=== PATIENT | male | born 1960 | race Two or more races ===

== ENCOUNTER 2023-11-19 14:28 | Inpatient (IN) | payer MEDICARE, MEDICAID ==
[~2023-11-19] VITALS: Ht 177.8 cm; Wt 84.5 kg
[2023-11-19 15:35] LABS: Basophils # (auto) 0.1 10 ^3/uL (0-0.2); Basophils % (auto) 0.4 % (0.0-2.0); Eosinophils # (auto) 0.1 10 ^3/uL (0-0.8); Eosinophils % (auto) 0.3 % (0.0-7.0); Hematocrit 36.4 % (41.0-53.0); Hemoglobin 11.7 g/dL (13.5-17.5); Lymphocytes # (auto) 0.8 10 ^3/uL (0.4-5.4); Lymphocytes % (auto) 5.1 % (10.0-50.0); Mean Corpuscular Hgb Conc. 32.1 g/dL (32.0-36.0); Mean Corpuscular Volume 93.3 fL (80.0-100.0); Monocytes # (auto) 2.8 10 ^3/uL (0-1.3); Monocytes % (auto) 17.1 % (0.0-12.0); Neutrophils # (auto) 12.6 10 ^3/uL (1.6-8.6); Neutrophils % (auto) 77.1 % (37.0-80.0); Red Cell Distribution Width 21.1 % (11.8-14.3); White Blood Cell 16.3 10^3/uL (4.4-10.8)
[2023-11-19 16:07] LABS: Alanine Aminotransferase 52 U/L (7-40); Albumin 3.5 g/dL (3.2-4.8); Alkaline Phosphatase 117 U/L (46-116); Anion Gap 9 (5-15); Aspartate Aminotransferase 82 U/L (13-40); BUN/Creatinine Ratio 42.9 (10.0-20.0); Bilirubin, Total 2.6 mg/dL (0.2-1.0); Blood Alcohol < 3.0 mg/dL (<10); Blood Urea Nitrogen 48 mg/dL (9-23); Calcium 8.5 mg/dL (8.5-10.1); Carbon Dioxide 25 mmol/L (20-30); Chloride 101 mmol/L (98-107); Glucose 98 mg/dL (74-106); Potassium 3.5 mmol/L (3.5-5.1); Sodium 135 mmol/L (136-145); Total Protein 6.2 g/dL (5.7-8.2)
[2023-11-19] MEDS: HYDROcodone-ACET 10/325MG TAB PO ONE (16:27)
[2023-11-19 16:30] LABS: Lipase 55 U/L (12-53)
[2023-11-19 19:27] VITALS: PULSE 93; RESP 20; O2SAT 97
[2023-11-19] MEDS: ENOXAPARIN SOD 40 MG/0.4 ML SYRINGE SC ONE (21:24)
[2023-11-19 22:37] LABS: Amphetamine Screen, Urine Neg (NEGATIVE); Barbiturate Scree,Urine Neg (NEGATIVE); Benzodiazephine Screen, Urine Neg (NEGATIVE); Cannabinoid Screen, Urine Neg (NEGATIVE); Cocaine Screen, Urine Neg (NEGATIVE); Opiate Scree,Urine Neg (NEGATIVE); Phencyclidine Screen, Urine Neg (NEGATIVE)
[2023-11-19 22:39] LABS: Urine Bacteria NONE SEEN /hpf (None Seen); Urine Blood Negative /uL (Negative); Urine Clarity Clear (Clear); Urine Color Yellow (Yellow); Urine Protein, UAD TRACE (Negative); Urine Specific Gravity 1.027 (1.001-1.035); Urine Urobilinogen >12.0 mg/dL (Negative); Urine WBC 2 /hpf (0 - 3)
[2023-11-20] VITALS (7 sets, daily range): BP systolic 147–156; BP diastolic 89–93; PULSE 81–95; RESP 18–21; TEMP 98.2–99.2; O2SAT 94–97
[2023-11-20] MEDS ORDERED: NITROGLYCERIN 0.4 MG SL TAB SL PRN (01:15)
[2023-11-20] MEDS ORDERED: ONDANSETRON HCL 4 MG/2 ML VIAL IV PRN (01:15)
[2023-11-20] MEDS ORDERED: MORPHINE SULFATE INJ 2 MG/ml SYRG IV PRN (01:15)
[2023-11-20] MEDS ORDERED: HYDROcodone-ACET 5/325MG TAB PO PRN (01:15)
[2023-11-20] MEDS ORDERED: ACETAMINOPHEN 325 MG TAB PO PRN (01:15)
[2023-11-20] MEDS ORDERED: DOCUSATE SOD 100 MG CAP PO PRN (01:15)
[2023-11-20] MEDS: POTASSIUM CHL 20 Meq TABLET PO ONE ×2 (01:35→16:34)
[2023-11-20] MEDS: cefTRIAXone 1GM/50ML D5W 50 ML IV ONE (01:35)
[2023-11-20] MEDS: SODIUM CHLORIDE 0.9% 1,000 ML IV SCH (01:35)
[2023-11-20 05:07] LABS: Hematocrit 33.5 % (41.0-53.0); Hemoglobin 10.9 g/dL (13.5-17.5); Mean Corpuscular Hemoglobin 30.2 pg (28.0-32.0); Mean Corpuscular Hgb Conc. 32.4 g/dL (32.0-36.0); Mean Corpuscular Volume 93.4 fL (80.0-100.0); Red Blood Cells 3.59 10^6/uL (4.5-5.90); White Blood Cell 11.4 10^3/uL (4.4-10.8)
[2023-11-20 05:13] LABS: Red Cell Distribution Width 21.1 % (11.8-14.3)
[2023-11-20 05:14] LABS: Band Neutrophils % (manual) 0; Basophils % (manual) 0 (0.0-2.0); Blast Cells 0; Metamyelocytes % 0; Myelocytes % 0; Promyelocytes % 0; Reactive Lymphocytes 0
[2023-11-20 05:17] LABS: Alanine Aminotransferase 36 U/L (7-40); Alkaline Phosphatase 93 U/L (46-116); Anion Gap 5 (5-15); Aspartate Aminotransferase 36 U/L (13-40); BUN/Creatinine Ratio 35.2 (10.0-20.0); Calcium 8.3 mg/dL (8.7-10.4); Carbon Dioxide 27 mmol/L (20-30); Chloride 104 mmol/L (98-107); Glucose 95 mg/dL (74-106); Potassium 3.2 mmol/L (3.5-5.1); Sodium 136 mmol/L (136-145)
[2023-11-20 05:18] LABS: Albumin 3.2 g/dL (3.2-4.8); Bilirubin, Total 2.1 mg/dL (0.2-1.0); Total Protein 5.8 g/dL (5.7-8.2)
[2023-11-20 05:24] LABS: Blood Urea Nitrogen 32 mg/dL (9-23)
[2023-11-20 06:41] LABS: Eosinophils % (manual) 1 (0-7); Lymphocytes % (manual) 11 (10.0-50.0); Monocytes % (manual) 15 (0-12); Platelet Estimate Adequate
[2023-11-20] MEDS ORDERED: VANCOMYCIN PER PHARMACY 0 MG IV SCH (12:15)
[2023-11-20 13:15] LABS: Triglycerides 88 mg/dL (< 150)
[2023-11-20 13:16] LABS: LDL Cholesterol 73 mg/dL (< 100)
[2023-11-20 13:17] LABS: Cholesterol 120 mg/dL (< 200); HDL Cholesterol 26 mg/dL (40-59)
[2023-11-20] MEDS: POTASSIUM CHLORIDE 20 MEQ in D5W 5% 1,000 ML IV SCH (16:34)
[2023-11-20] MEDS: VANCOMYCIN 1GM/200ML 200 ML IV ONE (16:34)
[2023-11-20] MEDS: FOLIC ACID 1 MG, MULTIPLE VITAMIN 10 ML, MAGNESIUM SULF SDV 50% 8 MEQ, THIAMINE INJ 100... INJ SCH (17:34)
[2023-11-20] MEDS ORDERED: ENOXAPARIN SOD 40 MG/0.4 ML SYRINGE SC SCH (22:00)
[2023-11-20] MEDS: levETIRAcetam 500 MG TAB PO SCH (22:04)
[2023-11-21] VITALS (8 sets, daily range): BP systolic 133–149; BP diastolic 71–90; PULSE 82–91; RESP 16–20; TEMP 97.9–98.7; O2SAT 92–100
[2023-11-21] MEDS: HYDROcodone-ACET 5/325MG TAB PO PRN (00:43)
[2023-11-21] MEDS: ENOXAPARIN SOD 40 MG/0.4 ML SYRINGE SC SCH (00:44)
[2023-11-21] MEDS ORDERED: cefTRIAXone 1GM/50ML D5W 50 ML IV SCH (01:00)
[2023-11-21] MEDS: cefTRIAXone 1GM/50ML D5W 50 ML IV SCH (05:03)
[2023-11-21] MEDS: VANCOMYCIN 1GM/200ML 200 ML IV SCH (05:05)
[2023-11-21 06:54] LABS: Basophils # (auto) 0.1 10 ^3/uL (0-0.2); Basophils % (auto) 0.7 % (0.0-2.0); Eosinophils # (auto) 0.2 10 ^3/uL (0-0.8); Eosinophils % (auto) 1.7 % (0.0-7.0); Hematocrit 33.8 % (41.0-53.0); Hemoglobin 10.7 g/dL (13.5-17.5); Lymphocytes # (auto) 1.3 10 ^3/uL (0.4-5.4); Lymphocytes % (auto) 10.8 % (10.0-50.0); Mean Corpuscular Hemoglobin 30.2 pg (28.0-32.0); Mean Corpuscular Hgb Conc. 31.7 g/dL (32.0-36.0); Mean Corpuscular Volume 95.2 fL (80.0-100.0); Monocytes % (auto) 16.7 % (0.0-12.0); Neutrophils # (auto) 8.2 10 ^3/uL (1.6-8.6); Neutrophils % (auto) 70.1 % (37.0-80.0); Red Blood Cells 3.55 10^6/uL (4.5-5.90); White Blood Cell 11.8 10^3/uL (4.4-10.8)
[2023-11-21 07:03] LABS: Red Cell Distribution Width 21.1 % (11.8-14.3)
[2023-11-21 07:30] LABS: Alanine Aminotransferase 24 U/L (7-40); Albumin 2.9 g/dL (3.2-4.8); Alkaline Phosphatase 84 U/L (46-116); Anion Gap 5 (5-15); Aspartate Aminotransferase 28 U/L (13-40); BUN/Creatinine Ratio 18.5 (10.0-20.0); Blood Urea Nitrogen 15 mg/dL (9-23); Calcium 8.4 mg/dL (8.5-10.1); Carbon Dioxide 22 mmol/L (20-30); Chloride 103 mmol/L (98-107); Glucose 87 mg/dL (74-106); Potassium 3.9 mmol/L (3.5-5.1)
[2023-11-21 07:31] LABS: Bilirubin, Total 1.1 mg/dL (0.2-1.0); Total Protein 5.6 g/dL (5.7-8.2)
[2023-11-21 07:52] LABS: Sodium 130 mmol/L (136-145)
[2023-11-21 09:26] LABS: Hepatitis B Core Total AB Negative (Negative)
[2023-11-21 11:23] LABS: Hepatitis A Total Antibody Negative (Negative); Hepatitis B Surface Antibody Negative (Negative); Hepatitis B Surface Antigen Negative (Negative); Hepatitis C Antibody Negative (Negative)
[2023-11-22] VITALS (7 sets, daily range): BP systolic 147–162; BP diastolic 85–99; PULSE 72–92; RESP 17–20; TEMP 97.9–98.6; O2SAT 92–96
[2023-11-22 15:17] LABS: INR 1.05 (0.9-1.15)
[2023-11-22] MEDS: LIDOCAINE 1% (LOCAL ANESTH.) PF 5ml SDV ID ONE (16:23)
[2023-11-22 21:33] LABS: COVID19 ANTIGEN SOFIA FIA NEGATIVE (NEGATIVE)
[2023-11-22] MEDS: SODIUM CHLOR 0.9% PF (SALINE LOCK) 10ML VIAL/SYR IV SCH (22:00)
[2023-11-23 05:00] VITALS: BP 159/89; PULSE 85; RESP 20; TEMP 98.5; O2SAT 96
[2023-11-23 08:00] VITALS: PULSE 66; PULSE 70; RESP 18; O2SAT 96
[2023-11-23 08:41] VITALS: BP 157/99; PULSE 76; RESP 16; TEMP 98.3; O2SAT 95
[2023-11-23 13:00] VITALS: BP 158/91; PULSE 79; RESP 16; TEMP 98.1; O2SAT 94
[2023-11-23] MEDS: VANCOMYCIN 1GM/200ML 200 ML IV SCH (16:24)
[2023-11-23 17:01] VITALS: TEMP 36.7
== END 2023-11-23 18:59 | DRG 871 ==
LOC: ER 14:28 → EDBD 14:28 → ER 11-20 01:16 → TELE 11-20 01:16 → TELE-WESTW 11-20 07:43
PROVIDERS: ADMIT Nurse Practitioner Family; ATTEND Family Medicine
PROC: 02HV33Z Insertion of Infusion Device into Superior Vena Cava, Percutaneous Approach (ICD-10-PCS; principal; 2023-11-22)
PROC: B548ZZA Ultrasonography of Superior Vena Cava, Guidance (ICD-10-PCS; 2023-11-22)
DX: A41.9 Sepsis, unspecified organism (principal); K85.90 Acute pancreatitis without necrosis or infection, unspecified; R65.21 Severe sepsis with septic shock; D64.9 Anemia, unspecified; E86.0 Dehydration; Z20.822 Contact with and (suspected) exposure to COVID-19; J44.9 Chronic obstructive pulmonary disease, unspecified; I73.9 Peripheral vascular disease, unspecified; R74.01 Elevation of levels of liver transaminase levels; R79.89 Other specified abnormal findings of blood chemistry; Z82.0 Family history of epilepsy and other diseases of the nervous system; F17.200 Nicotine dependence, unspecified, uncomplicated; F10.10 Alcohol abuse, uncomplicated; Y90.9 Presence of alcohol in blood, level not specified; L89.320 Pressure ulcer of left buttock, unstageable; L89.310 Pressure ulcer of right buttock, unstageable; I11.0 Hypertensive heart disease with heart failure; I50.9 Heart failure, unspecified; Z91.199 Patient's noncompliance with other medical treatment and regimen due to unspecified reason
CPT/HCPCS: 36415; 36569; 70450; 71045; 76700; 80053; 80061; 80202; 80307; 80320; 81001; 82550; 82565; 83605; 83690; 83880; 84443; 84484; 85007; 85025; 85027; 85610; 86704; 86706; 86708; 86803; 87040; 87205; 87340; 87426; 93005; 93306; 93925; 93970; 97163; G0378